=== PATIENT | male | born 1960 | race Caucasian/White ===

== ENCOUNTER 2017-09-14 16:06 | Emergency (ER) | payer OTHER ==
[~2017-09-14] VITALS: Ht 177.8 cm; Wt 117.9 kg
[2017-09-14] MEDS ORDERED: HYCODAN/HYDROMET5 ML PO (17:30)
[2017-09-14] MEDS ORDERED: TESSALON PERLE100 M1 PO (17:30)
[2017-09-14] MEDS ORDERED: PROAIR HFA8.5 GM INH (17:30)
[2017-09-14] MEDS ORDERED: ZOFRAN ODT4 MG SL (17:30)
== END 2017-09-14 17:39 | disposition home or self-care (01) ==
LOC: ED 16:06
DX: J11.1 Influenza due to unidentified influenza virus with other respiratory manifestations (principal); R03.0 Elevated blood-pressure reading, without diagnosis of hypertension; Z90.89 Acquired absence of other organs

== ENCOUNTER → 2025-05-27 | Outpatient (CLI) | payer MEDICARE ==
[~2025-05-27] MED LIST: HYCODAN/HYDROMET5 ML PO; PROAIR HFA8.5 GM INH; TESSALON PERLE100 M1 PO; ZOFRAN ODT4 MG SL
[2025-05-27 08:53] LABS: BASO # 0.1 10*3/uL (0.0-0.1); BASO % 0.7 % (0.0-1.0); EOS # 0.2 10*3/uL (0.0-0.4); EOS % 2.4 % (1.0-4.0); MEAN CELL VOLUME 92.6 fl (80.0-94.0); MEAN CORPUSCULAR HGB 31.0 pg (27.0-31.0); MEAN PLATELET VOLUME 9.4 fl (9.6-12.3); MONO # 0.5 10*3/uL (0.1-1.0); MONO % 6.7 % (3.0-9.0); NEUT # 4.3 10*3/uL (2.3-7.9); NEUT % 64.4 % (47.0-73.0); NUCLEATED RED BLOOD CELL 0.0 % (0.0-0.0); NUCLEATED RED BLOOD CELL 0.0 10*3/uL (0.0-0.0); PLATELET COUNT AUTOMATED 259 10*3/uL (130-400); RED CELL DISTRI WIDTH 12.2 % (0-14.5)
[2025-05-27 09:25] LABS: BUN 13 mg/dl (9-23); LDL CHOLESTEROL 83 mg/dL (9-159); SGPT/ALT 32 U/L (5-49)
== END | disposition home or self-care (01) ==
LOC: LAB 08:27
PROVIDERS: ATTEND Nurse Practitioner
DX: I10 Essential (primary) hypertension (principal); E11.9 Type 2 diabetes mellitus without complications; E87.5 Hyperkalemia; Z12.5 Encounter for screening for malignant neoplasm of prostate